=== PATIENT | male | born 1960 | race Caucasian/White ===

== ENCOUNTER 2020-02-01 18:40 | Emergency (ER) | payer BC ==
[~2020-02-01] VITALS: Ht 172.7 cm; Wt 95.3 kg
[2020-02-01] MEDS ORDERED: LANTUS SUBQ (19:00)
[2020-02-01] MEDS ORDERED: HUMALOG100 UNIT/1 SUBQ (19:00)
[2020-02-01] MEDS ORDERED: ASA81BEC PO (19:01)
[2020-02-01] MEDS ORDERED: ATORVASTATIN CA80 MG PO (19:01)
[2020-02-01] MEDS ORDERED: FUROSEMIDE 40 M40 MG PO (19:02)
[2020-02-01] MEDS ORDERED: KLOR-CON 10 ER10 MEQ PO (19:02)
[2020-02-01] MEDS ORDERED: AMIODARONE HCL400 MG PO (19:02)
[2020-02-01] MEDS ORDERED: LISINOPRIL2.5 MG PO (19:02)
[2020-02-01] MEDS ORDERED: PLAVIX 75 MG TA75 MG PO (19:03)
[2020-02-01] MEDS ORDERED: NEURONTIN300 MG PO (19:03)
[2020-02-01] MEDS ORDERED: TOPROL XL100 MG PO (19:03)
[2020-02-01] MEDS ORDERED: DOXYCYCLINE 10100 MG PO ×2 (19:31→19:34)
[2020-02-01 19:41] VITALS: BP 90/62
== END 2020-02-01 19:42 | disposition home or self-care (01) ==
LOC: M.ERS 18:40
DX: L03.031 Cellulitis of right toe (principal); E11.9 Type 2 diabetes mellitus without complications; Z79.4 Long term (current) use of insulin; Z95.1 Presence of aortocoronary bypass graft